=== PATIENT | male | born 1940 | race Caucasian/White ===

== ENCOUNTER 2017-05-02 22:09 | Inpatient (IN) ==
[2017-05-02 23:58] LABS: Basophils % 0.3 %; Eosinophils % 0.1 %; Hematocrit 41.7 % (37.5-50.1); Hemoglobin 14.3 g/dL (12.9-16.9); Immature Granulocytes % 1.4 % (0-4); Immature Platelets 7.7 % (1.1-6.1); Lymphocytes # 1.1 K/mcL (0.6-4.6); Lymphocytes % 8.2 %; Mean Corpuscular HGB Conc 34.3 g/dL (31.6-35.5); Mean Corpuscular Hemoglobin 32.9 pg (28.0-33.3); Mean Corpuscular Volume 95.9 fL (83.0-100.0); Mean Platelet Volume 11.1 fL (9.4-12.4); Monocytes # 1.4 K/mcL (0.0-1.3); Monocytes % 10.3 %; Neutrophils # 10.9 K/mcL (1.6-8.9); Platelet Count 291 K/mcL (140-400); Red Blood Count 4.35 M/mcL (4.19-5.50); Red Cell Distribution Width 17.6 % (11.5-14.5); Segmented Neutrophils % 79.7 %
[2017-05-03 00:13] LABS: Alanine Aminotransferase 229 Units/L (0-55); Albumin 2.8 g/dL (3.5-5.0); Albumin/Globulin Ratio 0.7 (1.1-2.2); Alkaline Phosphatase 573 Units/L (38-126); Amylase 66 Units/L (25-125); Aspartate Amino Transferase 278 Units/L (5-34); BUN/Creatinine Ratio 26 (6-26); Bilirubin,Direct 7.3 mg/dL (0.0-0.5); Bilirubin,Indirect 1.8 mg/dL (0.0-1.2); Bilirubin,Total 9.1 mg/dL (0.2-1.2); Blood Urea Nitrogen 36 mg/dL (8-26); Calcium 9.7 mg/dL (8.6-10.8); Carbon Dioxide 24 mEq/L (19-29); Chloride 100 mEq/L (98-109); Globulin 4.1 g/dL (2.4-3.5); Glucose 95 mg/dL (70-99); Lipase 95 Units/L (8-78); Osmolality,Calculated 290 (280-300); Potassium 4.6 mEq/L (3.5-4.5); Sodium 136 mEq/L (136-145); Total Protein 6.9 g/dL (6.0-8.3); eGFR For African Americans 59 (> 60); eGFR For Non-African Americans 49 (> 60)
[2017-05-03] MEDS ORDERED: 0.9 % Sodium Chloride 1,000 ML IVC ONE (00:32)
--- NOTE | 2017-05-03 00:44 | Emergency Department Note ---
Disposition Clinical Impression: Lung mass, Adrenal mass, Acute renal insufficiency Acute liver failure Qualifiers: Hepatic coma status: without hepatic coma Qualified Code(s): K72.00 - Acute and subacute hepatic failure without coma COPD (chronic obstructive pulmonary disease) Qualifiers: COPD type: unspecified COPD Qualified Code(s): J44.9 - Chronic obstructive pulmonary disease, unspecified UTI (urinary tract infection) Qualifiers: Urinary tract infection type: acute cystitis Hematuria presence: without hematuria Qualified Code(s): N30.00 - Acute cystitis without hematuria Disposition: Admitted As Inpatient Condition: Undetermined Abdominal Pain HPI - General Chief Complaint: ED Abdominal Pain Stated Complaint: ABD PAIN Time Seen by Provider: 05/03/17 00:01 Source: patient, family Mode of arrival: private vehicle Limitations: no limitations Nursing Notes Reviewed: Yes Vital Signs Reviewed: Yes - History of Present Illness Pt Subjective Complaint: abdominal pain Onset (ago): month(s) (since second week of March) Consistency: constant, Worsening Location: diffuse, RUQ Pain Severity: mild, moderate Pain Scale: 6 Quality: fullness, dull Radiation: none Migration to: no migration Improves with: nothing Worsens with: other (lying down) Associated symptoms: Reports: nausea, anorexia. Denies: vomiting, diarrhea, fever, chills, constipation, dysuria, hematemesis, hematochezia, melena, hematuria, syncope Treatments prior to arrival: none - Related Data Allergies Allergy/AdvReac Type Severity Reaction Status Date / Time No Known Allergies Allergy Verified 05/02/17 22:52 All systems ED: reviewed and negative except as stated. Constitutional: Reports: weight change (27lbs in 3 weeks). Denies: fever, chills, weakness, night sweats Eyes: Denies: eye pain, eye discharge, vision change ENT ED: Denies: throat pain, congestion, dysphagia Cardiovascular: Reports: dyspnea on exertion, orthopnea, edema. Denies: chest pain, palpitations, syncope Respiratory: Reports: dyspnea, wheezes. Denies: cough, hemoptysis, stridor, sputum production Gastrointestinal: Reports: as per HPI, abdominal pain, nausea. Denies: vomiting , diarrhea, constipation, melena, hematochezia Genitourinary: Denies: urgency, dysuria, frequency, hematuria Musculoskeletal: Denies: back pain, neck pain, joint swelling, arthralgia Integumentary: Denies: rash, pruritus Neurological: Denies: headache, weakness, confusion, abnormal gait, vertigo Hematological/Lymphatic: Denies: easy bleeding, easy bruising, lymphadenopathy Abdominal Pain PMH - Past Medical History Medical history: Reports: hyperlipidemia, hypertension, myocardial infarction, thyroid disease, other Male Surgical History: Reports: no surgical history Psychiatric history: Reports: ADHD, depression - Social History Smoking status: Current some day smoker Alcohol use: Reports: none, rarely Drug use: Reports: none Physical Exam - General Limitations: no limitations General appearance: alert, in no apparent distress - Head Head exam: atraumatic, normocephalic, normal inspection - Eye Eye exam: Present: PERRL, scleral icterus. Absent: conjunctival injection, periorbital swelling - ENT ENT exam: mucous membranes moist - Neck Neck exam: Present: normal inspection, full ROM, trachea midline. Absent: meningismus - Expanded Neck Exam Neck exam focused ED: Absent: JVD - Chest Chest inspection: Present: normal inspection, symmetric chest wall rise - Respiratory Respiratory exam: Present: wheezes. Absent: respiratory distress, stridor, accessory muscle use, prolonged expiratory phase - Cardiovascular Cardiovascular exam: Present: regular rate, normal rhythm - Abdominal Exam Abdominal exam: Present: soft, tenderness, distention, diminished bowel sounds, ascites. Absent: guarding, rebound, rigidity, Thompson's sign, mass, pulsatile mass Abdominal tenderness: Present: diffuse - Extremities Exam Extremities exam: Present: full ROM, normal capillary refill, pedal edema. Absent: tenderness, joint swelling, calf tenderness - Expanded Lower Extremity Exam Gait: observed and normal - Back Exam Back exam: Present: normal inspection - Neurological Exam Neurological exam: Present: alert, oriented X3, CN II-XII intact, normal gait - Psychiatric Psychiatric exam: Present: normal affect, normal mood - Skin Skin exam: Present: warm, dry, intact, normal color Course Vital Signs Temperature 97.5 F L 05/02/17 22:51 Pulse Rate 95 05/02/17 22:51 Respiratory Rate 18 05/02/17 22:51 Blood Pressure 150/75 05/02/17 22:51 O2 Sat by Pulse Oximetry 92 05/02/17 22:51 Temperature 98.5 F 05/03/17 03:28 Pulse Rate 95 05/03/17 03:28 Respiratory Rate 18 05/03/17 04:28 Blood Pressure 133/91 05/03/17 03:28 O2 Sat by Pulse Oximetry 95 05/03/17 04:28 Oxygen Delivery Oxygen Delivery Nasal Cannula Abdominal Pain - Medical Records Medical records reviewed: Yes I reviewed the patient's medical records. - Lab Data Lab results reviewed: Yes I reviewed the patient's lab results. Lab results narrative: Laboratory Last Values WBC 13.6 K/mcL (4.3-11.1) H 05/02/17 23:47 RBC 4.35 M/mcL (4.19-5.50) 05/02/17 23:47 Hgb 14.3 g/dL (12.9-16.9) 05/02/17 23:47 Hct 41.7 % (37.5-50.1) 05/02/17 23:47 MCV 95.9 fL (83.0-100.0) 05/02/17 23:47 MCH 32.9 pg (28.0-33.3) 05/02/17 23:47 MCHC 34.3 g/dL (31.6-35.5) 05/02/17 23:47 RDW 17.6 % (11.5-14.5) H 05/02/17 23:47 Plt Count 291 K/mcL (140-400) 05/02/17 23:47 MPV 11.1 fL (9.4-12.4) 05/02/17 23:47 Immature Gran % 1.4 % (0-4) 05/02/17 23:47 Seg Neutrophils % 79.7 % 05/02/17 23:47 Lymphocytes % 8.2 % 05/02/17 23:47 Monocytes % 10.3 % 05/02/17 23:47 Eosinophils % 0.1 % 05/02/17 23:47 Basophils % 0.3 % 05/02/17 23:47 Neutrophils # 10.9 K/mcL (1.6-8.9) H 05/02/17 23:47 Lymphocytes # 1.1 K/mcL (0.6-4.6) 05/02/17 23:47 Monocytes # 1.4 K/mcL (0.0-1.3) H 05/02/17 23:47 Eosinophils # 0.0 K/mcL (0.0-0.6) 05/02/17 23:47 Basophils # 0.0 K/mcL (0.0-0.2) 05/02/17 23:47 Immature Plt Fraction 7.7 % (1.1-6.1) H 05/02/17 23:47 PT 12.8 Seconds (9.4-12.1) H 05/02/17 23:47 INR 1.2 05/02/17 23:47 APTT 27.5 Seconds (26.0-36.0) 05/02/17 23:47 Sodium 136 mEq/L (136-145) 05/02/17 23:47 Potassium 4.6 mEq/L (3.5-4.5) H 05/02/17 23:47 Chloride 100 mEq/L (98-109) 05/02/17 23:47 Carbon Dioxide 24 mEq/L (19-29) 05/02/17 23:47 BUN 36 mg/dL (8-26) H 05/02/17 23:47 Creatinine 1.41 mg/dL (0.72-1.25) H 05/02/17 23:47 Est GFR ( Amer) 59 (> 60) L 05/02/17 23:47 Est GFR (Non-Af Amer) 49 (> 60) L 05/02/17 23:47 BUN/Creatinine Ratio 26 (6-26) 05/02/17 23:47 Glucose 95 mg/dL (70-99) 05/02/17 23:47 Calculated Osmolality 290 (280-300) 05/02/17 23:47 Lactic Acid 1.8 mmol/L (0.5-2.2) 05/03/17 00:36 Calcium 9.7 mg/dL (8.6-10.8) 05/02/17 23:47 Total Bilirubin 9.1 mg/dL (0.2-1.2) H 05/02/17 23:47 Direct Bilirubin 7.3 mg/dL (0.0-0.5) H 05/02/17 23:47 Indirect Bilirubin 1.8 mg/dL (0.0-1.2) H 05/02/17 23:47 AST 278 Units/L (5-34) H 05/02/17 23:47 ALT 229 Units/L (0-55) H 05/02/17 23:47 Alkaline Phosphatase 573 Units/L (38-126) H 05/02/17 23:47 B-Natriuretic Peptide 21 pg/mL (0-100) 05/02/17 23:47 Serum Total Protein 6.9 g/dL (6.0-8.3) 05/02/17 23:47 Albumin 2.8 g/dL (3.5-5.0) L 05/02/17 23:47 Globulin 4.1 g/dL (2.4-3.5) H 05/02/17 23:47 Albumin/Globulin Ratio 0.7 (1.1-2.2) L 05/02/17 23:47 Amylase 66 Units/L (25-125) 05/02/17 23:47 Lipase 95 Units/L (8-78) H 05/02/17 23:47 Urine Color [place] (Yellow) A 05/03/17 01:28 Urine Clarity Cloudy (Clear) A 05/03/17 01:28 Urine pH 5.5 pH Units (5.0-8.0) 05/03/17 01:28 Ur Specific [place] 1.026 (1.010-1.025) H 05/03/17 01:28 Urine Protein 30 mg/dL (Neg-Trace) H 05/03/17 01:28 Urine Glucose (UA) Normal mg/dL (Normal) 05/03/17 01:28 Urine Ketones Trace mg/dL (Negative) H 05/03/17 01:28 Urine Blood Negative (Negative) 05/03/17 01:28 Urine Nitrite Positive (Negative) A 05/03/17 01:28 Urine Bilirubin Large (Negative) H 05/03/17 01:28 Urine Urobilinogen 2.0 mg/dL (Normal) H 05/03/17 01:28 Ur Leukocyte Esterase Small (Negative) H 05/03/17 01:28 Urine Microscopic RBC 0-3 per hpf (0-3) 05/03/17 01:28 Urine Microscopic WBC 0-3 per hpf (0-3) 05/03/17 01:28 Ur Squamous Epith Cells Moderate per lpf (None-Few) H 05/03/17 01:28 Urine Bacteria None Seen per hpf (None-Few) 05/03/17 01:28 Hyaline Casts Few per lpf (None-Few) 05/03/17 01:28 Ur Culture Indicated? YES (NO) A 05/03/17 01:28 Ethyl Alcohol < 10 mg/dL (0-10) 05/02/17 23:47 Hep Bs Antigen Nonreactive (Nonreactive) 05/02/17 23:47 Result diagrams: 05/03/17 04:18 05/03/17 04:18 Lab Results 05/02/17 05/02/17 05/02/17 Range/Units 23:47 23:47 23:47 WBC 13.6 H (4.3-11.1) K/mcL RBC 4.35 (4.19-5.50) M/mcL Hgb 14.3 (12.9-16.9) g/dL Hct 41.7 (37.5-50.1) % MCV 95.9 (83.0-100.0) fL MCH 32.9 (28.0-33.3) pg MCHC 34.3 (31.6-35.5) g/dL RDW 17.6 H (11.5-14.5) % Plt Count 291 (140-400) K/mcL MPV 11.1 (9.4-12.4) fL Immature Gran % 1.4 (0-4) % Seg Neutrophils % 79.7 % Lymphocytes % 8.2 % Monocytes % 10.3 % Eosinophils % 0.1 % Basophils % 0.3 % Neutrophils # 10.9 H (1.6-8.9) K/mcL Lymphocytes # 1.1 (0.6-4.6) K/mcL Monocytes # 1.4 H (0.0-1.3) K/mcL Eosinophils # 0.0 (0.0-0.6) K/mcL Basophils # 0.0 (0.0-0.2) K/mcL Immature Plt Fraction 7.7 H (1.1-6.1) % PT 12.8 H (9.4-12.1) Seconds INR 1.2 APTT 27.5 (26.0-36.0) Seconds Sodium 136 (136-145) mEq/L Potassium 4.6 H (3.5-4.5) mEq/L Chloride 100 (98-109) mEq/L Carbon Dioxide 24 (19-29) mEq/L BUN 36 H (8-26) mg/dL Creatinine 1.41 H (0.72-1.25) mg/dL Est GFR ( Amer) 59 L (> 60) Est GFR (Non-Af Amer) 49 L (> 60) BUN/Creatinine Ratio 26 (6-26) Glucose 95 (70-99) mg/dL Calculated Osmolality 290 (280-300) Lactic Acid (0.5-2.2) mmol/L Calcium 9.7 (8.6-10.8) mg/dL Total Bilirubin 9.1 H (0.2-1.2) mg/dL Direct Bilirubin 7.3 H (0.0-0.5) mg/dL Indirect Bilirubin 1.8 H (0.0-1.2) mg/dL AST 278 H (5-34) Units/L ALT 229 H (0-55) Units/L Alkaline Phosphatase 573 H (38-126) Units/L B-Natriuretic Peptide (0-100) pg/mL Serum Total Protein 6.9 (6.0-8.3) g/dL Albumin 2.8 L (3.5-5.0) g/dL Globulin 4.1 H (2.4-3.5) g/dL Albumin/Globulin Ratio 0.7 L (1.1-2.2) Amylase 66 (25-125) Units/L Lipase 95 H (8-78) Units/L Urine Color (Yellow) Urine Clarity (Clear) Urine pH (5.0-8.0) pH Units Ur Specific [place] (1.010-1.025) Urine Protein (Neg-Trace) mg/dL Urine Glucose (UA) (Normal) mg/dL Urine Ketones (Negative) mg/dL Urine Blood (Negative) Urine Nitrite (Negative) Urine Bilirubin (Negative) Urine Urobilinogen (Normal) mg/dL Ur Leukocyte Esterase (Negative) Urine Microscopic RBC (0-3) per hpf Urine Microscopic WBC (0-3) per hpf Ur Squamous Epith Cells (None-Few) per lpf Urine Bacteria (None-Few) per hpf Hyaline Casts (None-Few) per lpf Ur Culture Indicated? (NO) Ethyl Alcohol < 10 (0-10) mg/dL Hep Bs Antigen (Nonreactive) 05/02/17 05/02/17 05/03/17 Range/Units 23:47 23:47 00:36 WBC (4.3-11.1) K/mcL RBC (4.19-5.50) M/mcL Hgb (12.9-16.9) g/dL Hct (37.5-50.1) % MCV (83.0-100.0) fL MCH (28.0-33.3) pg MCHC (31.6-35.5) g/dL RDW (11.5-14.5) % Plt Count (140-400) K/mcL MPV (9.4-12.4) fL Immature Gran % (0-4) % Seg Neutrophils % % Lymphocytes % % Monocytes % % Eosinophils % % Basophils % % Neutrophils # (1.6-8.9) K/mcL Lymphocytes # (0.6-4.6) K/mcL Monocytes # (0.0-1.3) K/mcL Eosinophils # (0.0-0.6) K/mcL Basophils # (0.0-0.2) K/mcL Immature Plt Fraction (1.1-6.1) % PT (9.4-12.1) Seconds INR APTT (26.0-36.0) Seconds Sodium (136-145) mEq/L Potassium (3.5-4.5) mEq/L Chloride (98-109) mEq/L Carbon Dioxide (19-29) mEq/L BUN (8-26) mg/dL Creatinine (0.72-1.25) mg/dL Est GFR ( Amer) (> 60) Est GFR (Non-Af Amer) (> 60) BUN/Creatinine Ratio (6-26) Glucose (70-99) mg/dL Calculated Osmolality (280-300) Lactic Acid 1.8 (0.5-2.2) mmol/L Calcium (8.6-10.8) mg/dL Total Bilirubin (0.2-1.2) mg/dL Direct Bilirubin (0.0-0.5) mg/dL Indirect Bilirubin (0.0-1.2) mg/dL AST (5-34) Units/L ALT (0-55) Units/L Alkaline Phosphatase (38-126) Units/L B-Natriuretic Peptide 21 (0-100) pg/mL Serum Total Protein (6.0-8.3) g/dL Albumin (3.5-5.0) g/dL Globulin (2.4-3.5) g/dL Albumin/Globulin Ratio (1.1-2.2) Amylase (25-125) Units/L Lipase (8-78) Units/L Urine Color (Yellow) Urine Clarity (Clear) Urine pH (5.0-8.0) pH Units Ur Specific [place] (1.010-1.025) Urine Protein (Neg-Trace) mg/dL Urine Glucose (UA) (Normal) mg/dL Urine Ketones (Negative) mg/dL Urine Blood (Negative) Urine Nitrite (Negative) Urine Bilirubin (Negative) Urine Urobilinogen (Normal) mg/dL Ur Leukocyte Esterase (Negative) Urine Microscopic RBC (0-3) per hpf Urine Microscopic WBC (0-3) per hpf Ur Squamous Epith Cells (None-Few) per lpf Urine Bacteria (None-Few) per hpf Hyaline Casts (None-Few) per lpf Ur Culture Indicated? (NO) Ethyl Alcohol (0-10) mg/dL Hep Bs Antigen Nonreactive (Nonreactive) 05/03/17 Range/Units 01:28 WBC (4.3-11.1) K/mcL RBC (4.19-5.50) M/mcL Hgb (12.9-16.9) g/dL Hct (37.5-50.1) % MCV (83.0-100.0) fL MCH (28.0-33.3) pg MCHC (31.6-35.5) g/dL RDW (11.5-14.5) % Plt Count (140-400) K/mcL MPV (9.4-12.4) fL Immature Gran % (0-4) % Seg Neutrophils % % Lymphocytes % % Monocytes % % Eosinophils % % Basophils % % Neutrophils # (1.6-8.9) K/mcL Lymphocytes # (0.6-4.6) K/mcL Monocytes # (0.0-1.3) K/mcL Eosinophils # (0.0-0.6) K/mcL Basophils # (0.0-0.2) K/mcL Immature Plt Fraction (1.1-6.1) % PT (9.4-12.1) Seconds INR APTT (26.0-36.0) Seconds Sodium (136-145) mEq/L Potassium (3.5-4.5) mEq/L Chloride (98-109) mEq/L Carbon Dioxide (19-29) mEq/L BUN (8-26) mg/dL Creatinine (0.72-1.25) mg/dL Est GFR ( Amer) (> 60) Est GFR (Non-Af Amer) (> 60) BUN/Creatinine Ratio (6-26) Glucose (70-99) mg/dL Calculated Osmolality (280-300) Lactic Acid (0.5-2.2) mmol/L Calcium (8.6-10.8) mg/dL Total Bilirubin (0.2-1.2) mg/dL Direct Bilirubin (0.0-0.5) mg/dL Indirect Bilirubin (0.0-1.2) mg/dL AST (5-34) Units/L ALT (0-55) Units/L Alkaline Phosphatase (38-126) Units/L B-Natriuretic Peptide (0-100) pg/mL Serum Total Protein (6.0-8.3) g/dL Albumin (3.5-5.0) g/dL Globulin (2.4-3.5) g/dL Albumin/Globulin Ratio (1.1-2.2) Amylase (25-125) Units/L Lipase (8-78) Units/L Urine Color [place] A (Yellow) Urine Clarity Cloudy A (Clear) Urine pH 5.5 (5.0-8.0) pH Units Ur Specific [place] 1.026 H (1.010-1.025) Urine Protein 30 H (Neg-Trace) mg/dL Urine Glucose (UA) Normal (Normal) mg/dL Urine Ketones Trace H (Negative) mg/dL Urine Blood Negative (Negative) Urine Nitrite Positive A (Negative) Urine Bilirubin Large H (Negative) Urine Urobilinogen 2.0 H (Normal) mg/dL Ur Leukocyte Esterase Small H (Negative) Urine Microscopic RBC 0-3 (0-3) per hpf Urine Microscopic WBC 0-3 (0-3) per hpf Ur Squamous Epith Cells Moderate H (None-Few) per lpf Urine Bacteria None Seen (None-Few) per hpf Hyaline Casts Few (None-Few) per lpf Ur Culture Indicated? YES A (NO) Ethyl Alcohol (0-10) mg/dL Hep Bs Antigen (Nonreactive) - Radiology Data Radiology results reviewed: Yes I reviewed the patient's radiology results. Abdomen/Pelvis CT 05/03/17 00:30 IMPRESSION: Given the presence of a right lung mass the findings are most consistent with metastatic disease involving the liver and right adrenal gland. Upper abdominal lymph nodes are also probably metastatic. D/ / Ayush Castro MD / Ayush Castro MD Interpreting Provider: Ayush Castro MD Chest X-Ray 05/03/17 00:31 IMPRESSION: There is either a right hilar mass or right upper lobe mass abutting the right hilum. Contrast-enhanced routine chest CT is recommended for further evaluation. D/ / Ayush Castro MD / Ayush Castro MD Interpreting Provider: Ayush Castro MD - EKG Data EKG attestation: Yes I reviewed and interpreted this EKG. EKG shows normal: sinus rhythm Rate: normal Rhythm: NSR [place]/QRS: IVCD When compared to previous EKG there are: previous EKG unavailable Interpretation: nonspecific ST-T wave changes Attestation Statement - Attestation Attestation: I, Freddy Franz MD, personally evaluated this patient and discussed their management with the midlevel provicer, PAC/PRIMARY CARE PHYSICIAN. I reviewed the midlevel provider 's note and agree with the documented findings, medical decision making, and plan of care. 76-year-old male presents to the emergency department with a complaint of upper abdominal pain which started about a month ago. Some intermittent nausea and vomiting. No fever. Some shortness of breath. Symptoms have gotten progressively worse and he has lost about 27 pounds. He is a smoker. He also now has developed jaundice. On examination patient is a well-developed well-nourished elderly male in no acute distress. He is alert and oriented 3. There is no cyanosis or diaphoresis. Breath sounds are equal bilaterally with a few scattered expiratory wheezes. Heart regular rate and rhythm. Abdomen is soft with normal bowel sounds. There is mild diffuse upper abdominal tenderness, worse on the right. Labs reviewed. Chest x-ray shows a right lung mass. CT of the abdomen and pelvis shows extensive metastatic involvement of the liver and right adrenal gland as well as upper abdominal lymph nodes. Results discussed with patient and family. The hospitalist, Dr. Powers, was consulted and accepted admission of the patient.
[2017-05-03 00:45] LABS: INR 1.2; Prothrombin Time 12.8 Seconds (9.4-12.1)
[2017-05-03 00:47] LABS: Activated Partial Thrombo Time 27.5 Seconds (26.0-36.0)
[2017-05-03 01:12] LABS: Ethanol < 10 mg/dL (0-10)
[2017-05-03 01:32] LABS: Hepatitis B Surface Antigen Nonreactive (Nonreactive)
[2017-05-03 01:36] LABS: Bilirubin,Urine Large (Negative); Blood,Urine Negative (Negative); Clarity,Urine Cloudy (Clear); Color,Urine Orange (Yellow); Glucose,Urine (UA) Normal (Normal); Ketones,Urine Trace mg/dL (Negative); Leukocyte Esterase,Urine Small (Negative); Nitrite,Urine Positive (Negative); PH,Urine 5.5 pH Units (5.0-8.0); Protein,Urine 30 mg/dL (Neg-Trace); Specific Gravity,Urine 1.026 (1.010-1.025)
[2017-05-03 01:38] LABS: Bacteria,Urine None Seen per hpf (None-Few); Hyaline Casts,Urine Few per lpf (None-Few); Squamous Epithelial Cell,Urine Moderate per lpf (None-Few); WBC,Urine 0-3 per hpf (0-3)
[2017-05-03] MEDS ORDERED: Ipratropium/Albuterol Neb 3 ML IH ONE ×2 (01:47→01:52)
[2017-05-03 01:49] LABS: RBC,Urine 0-3 per hpf (0-3)
[2017-05-03] MEDS ORDERED: Ondansetron 4 MG/2 ML VIAL IVP PRN (03:27)
[2017-05-03] MEDS ORDERED: Naloxone 0.4 MG/ML INJ IVP PRN (03:27)
[2017-05-03] MEDS ORDERED: *HR* Morphine 2 MG/ML SYRINGE IVP PRN (03:27)
[2017-05-03] MEDS ORDERED: *HR* Dextrose 50 % in Water (Syg) 50 ML SYRINGE IVP PRN (03:34)
[2017-05-03] MEDS ORDERED: Dextrose Gel 15 GM PO PRN ×2 (03:34)
[2017-05-03] MEDS ORDERED: D5% in Water 1,000 ML IVC PRN (03:34)
[2017-05-03] MEDS ORDERED: Ipratropium/Albuterol Neb 3 ML IH SCH (04:00)
--- NOTE | 2017-05-03 04:13 | Internal Med History&Physical ---
Date of Encounter: 05/03/17 Time of Encounter: 03:55 Assessment and Plan (1) Hyperbilirubinemia Current visit: Yes Status: Acute Acute elevation of total bilirubin with transaminitis - elevated ALP and AST and ALP - with mild KOFI Likely due to metastatic liver disease INR 1.2, PT 12.8 Empiric IV antibiotics, IV fluids Gastroenterology consult Avoid hepatotoxic drugs Chest x-ray revealed right upper lobe mass Repeat labs in a.m. (2) Lung mass Current visit: Yes Status: Acute Right lung mass - newly diagnosed, with metastases to liver, right adrenal gland and abdominal lymphadenopathy Oncology consult CT chest for further evaluation (3) Sepsis Current visit: Yes Status: Acute Sepsis present on admission, likely secondary to UTI and probable bronchitis - with hyperbilirubinemia and transaminitis and mild AK I IV fluids, IV antibioticS Cultures pending EKG sinus rhythm with no acute ST-T changes Qualifiers: Sepsis type: sepsis due to unspecified organism Qualified Code(s): A41.9 - Sepsis, unspecified organism (4) Acute renal insufficiency Current visit: Yes Status: Acute Likely due to sepsis and acute illness Continue IV fluids Repeat labs in a.m. (5) COPD exacerbation Current visit: Yes Status: Acute Acute exacerbation of COPD -with probable acute bronchitis Continue DuoNeb breathing treatment O2 via nasal cannula (6) DVT prophylaxis Current visit: Yes Status: Acute Continue SCDs Internal Medicine - H&P: HPI Chief complaint: Abdominal pain Admitted From: Emergency Dept History of present illness: Mr. Cheatham is a 76 year old male with PMH of COPD, hypertension, hypothyroidism, hyperlipidemia and depression. He presents to the ED with complaints of abdominal pain and distention. Patient states symptoms have been going on for almost 2 months. He decided to come to ED today because his family made him come in. Patient states his abdominal pain is diffuse and is almost constant. Symptoms have gradually worsened. He complains of fullness and distention. No alleviating factors. Pain is worse when he lays flat. Patient also reports bilateral lower leg edema, nausea and poor appetite. Patient denies chest pain and denies palpitations but denies headache or dizziness. Denies vomiting or diarrhea. He does complain of mild shortness of breath which is chronic due to COPD. On examination patient is awake and alert. He is in mild discomfort due to wheezing and abdominal pain. He is hard of hearing, but He is able to provide all history. No family members at bedside. Patient also reports weight loss of almost 30 pounds over the past 3- 4 weeks. Also complains of generalized weakness. No other associated symptoms. Initial ED evaluation revealed hyperbilirubinemia with a total bilirubin of 9.14 transaminitis, elevated WBC and UA positive for nitrite. CT scan of the abdomen revealed metastatic disease involving the right adrenal gland and the liver and upper abdominal lymph nodes also probably metastatic. Chest x-ray revealed right hilar mass or right upper lobe mass, will need CT chest. Patient is being admitted for transaminitis and hyperbilirubinemia and COPD exacerbation. Patient has been explained about his cardiac condition, guarded prognosis and plan of care. He understood and agreed. No unanswered questions. code status full code. Past Med Surg Social Fam HX - Past Medical History Medical history: hyperlipidemia, hypertension, myocardial infarction, thyroid disease, other Psychiatric history: ADHD, depression - Past Surgical History Surgical History: cataract - Social History Smoking Status: Current some day smoker Smokeless Tobacco Status: No Alcohol use: none, rarely Drug use: none Internal Medicine - H&P: Meds Allergies No Known Allergies Allergy (Verified 05/02/17 22:52) All Systems PM: A 10-system review of systems was performed and is negative for pertinent findings except as documented above in the HPI. - Constitutional Constitutional: fatigue, weakness, no fever(s) - EENT Eyes: no blurry vision, no loss of vision - Cardiovascular Cardiovascular ROS IM: dyspnea, dyspnea on exertion, no chest pain, no lightheadedness, no palpitations, no syncope - Respiratory Respiratory: cough, dyspnea, dyspnea on exertion, wheezing, chest congestion - Gastrointestinal Gastrointestinal: abdominal pain, bloating, constipation, cramping, no diarrhea , no hematemesis, no hematochezia, no nausea, no vomiting - Genitourinary Genitourinary ROS male: no dysuria - Musculoskeletal Musculoskeletal ROS IM: arthralgias, back pain - Neurological Neurological ROS: no abnormal gait, no abnormal speech, no dizziness, no focal weakness, no loss of vision, no numbness, no tingling - Constitutional Vitals: Temp Pulse Resp BP Pulse Ox 98.5 F 95 18 133/91 90 05/03/17 03:28 05/03/17 03:28 05/03/17 03:28 05/03/17 03:28 05/03/17 03:28 General appearance: Present: mild distress, A&O X 3, pleasant, answers questions appropriately Exam: Generalized weakness, ill-appearing - Head Head exam: Present: atraumatic - Eye Eye exam: Present: EOMI, scleral icterus (Bilateral) - ENT ENT exam: Present: mucous membranes moist - Neck Neck exam general surgery: Present: supple - Respiratory Respiratory exam: Present: decreased breath sounds, wheezes (Extensive bilateral ). Absent: accessory muscle use, rales, rhonchi, tachypnea - Cardiovascular Cardiovascular exam: Present: RRR, +S1, +S2, systolic murmur - GI/Abdominal GI/Abdominal exam: Present: distended (Likely distended with ascites), soft, tenderness (Mild generalized). Absent: firm, guarding - Extremities Exam Extremities exam: Present: pedal edema (Bilateral leg pitting 2+), radial pulses palpable and symetrical. Absent: cyanotic - Neurological Exam Neurological exam: Present: alert, oriented X3, no focal deficits Internal Med - H&P Results - Labs CBC & Chem 7: 05/02/17 23:47 05/02/17 23:47
[2017-05-03] MEDS: Ipratropium/Albuterol Neb 3 ML IH SCH ×6 (04:28→23:17)
[2017-05-03 04:31] LABS: Basophils % 0.3 %; Eosinophils % 0.2 %; Hematocrit 40.4 % (37.5-50.1); Hemoglobin 13.9 g/dL (12.9-16.9); Immature Granulocytes % 2.3 % (0-4); Lymphocytes % 7.9 %; Mean Corpuscular HGB Conc 34.4 g/dL (31.6-35.5); Mean Corpuscular Hemoglobin 32.9 pg (28.0-33.3); Mean Corpuscular Volume 95.7 fL (83.0-100.0); Mean Platelet Volume 11.2 fL (9.4-12.4); Monocytes # 1.3 K/mcL (0.0-1.3); Monocytes % 10.7 %; Neutrophils # 9.7 K/mcL (1.6-8.9); Platelet Count 279 K/mcL (140-400); Red Blood Count 4.22 M/mcL (4.19-5.50); Red Cell Distribution Width 17.7 % (11.5-14.5); Segmented Neutrophils % 78.6 %
[2017-05-03 04:36] LABS: INR 1.2; Prothrombin Time 13.1 Seconds (9.4-12.1)
[2017-05-03 04:41] LABS: Alanine Aminotransferase 202 Units/L (0-55); Albumin 2.6 g/dL (3.5-5.0); Albumin/Globulin Ratio 0.7 (1.1-2.2); Alkaline Phosphatase 524 Units/L (38-126); Aspartate Amino Transferase 253 Units/L (5-34); BUN/Creatinine Ratio 28 (6-26); Bilirubin,Total 8.2 mg/dL (0.2-1.2); Blood Urea Nitrogen 36 mg/dL (8-26); Calcium 9.1 mg/dL (8.6-10.8); Carbon Dioxide 21 mEq/L (19-29); Chloride 105 mEq/L (98-109); Globulin 3.6 g/dL (2.4-3.5); Glucose 88 mg/dL (70-99); Osmolality,Calculated 292 (280-300); Potassium 4.6 mEq/L (3.5-4.5); Sodium 137 mEq/L (136-145); Total Protein 6.2 g/dL (6.0-8.3); eGFR For African Americans > 60 (> 60); eGFR For Non-African Americans 55 (> 60)
[2017-05-03] MEDS: 0.9 % Sodium Chloride 1,000 ML IVC SCH ×2 (05:03→23:07)
[2017-05-03] MEDS ORDERED: *HR* Heparin 5,000 UNIT/ML VIAL SQ SCH (06:00)
[2017-05-03] MEDS ORDERED: Famotidine 20 MG/2 ML VIAL IVP SCH (06:00)
[2017-05-03] MEDS: Insulin LISPRO 300 UNITS/3 ML VIAL SQ SCH ×3 (08:26→16:52)
[2017-05-03] MEDS: Piperacillin/Tazobactam 3.375 GM in D5% in Water (Mini-Bag+) 100 ML IVPB SCH ×3 (08:39→23:08)
[2017-05-03 13:03] LABS: Hepatitis A Antibody IgM Nonreactive (Nonreactive); Hepatitis B Core IgM Nonreactive (Nonreactive); Hepatitis C Virus Antibody Nonreactive (Nonreactive)
--- NOTE | 2017-05-03 15:11 | Electrocardiograph Report ---
[place] [id number] Test Date: 2017-05-03 Pat Name: Axel Cheatham Department: 105 Room: 3B24 Gender: M Door Operator: [facility] : 1940 Requested By: Vinicio Hopper Order Number: [id number] Reading MD: Young Dean MD Measurements Intervals [place] Rate: 90 P: 68 MD: 160 QRS: -39 QRSD: 134 T: 97 QT: 391 QTc: 438 Interpretive Statements SINUS RHYTHM MARKED LEFT AXIS DEVIATION INTRAVENTRICULAR CONDUCTION DELAY, atypical lbbb Poor R wave progression Electronically Signed On 05-03-2017 15:09:39 EDT by Young Dean MD
--- NOTE | 2017-05-03 15:29 | Oncology Inp Consult Note ---
Date of Encounter: 05/03/17 Time of Encounter: 15:00 Assessment and Plan (1) Lung mass Status: Acute Assessment and plan: I met with Mr. Cheatham, his and his daughter today. I reviewed his imaging and recent history. This gentleman appears to have metastatic lung cancer. I explained to them that there are 2 general histologies (non-small cell lung cancer and small cell lung cancer). Given his presentation and degree of hepatic dysfunction, treatment will be very difficult. If he has underlying non-small cell lung cancer, hospice will be most appropriate. However, if he has small cell lung cancer, I do think we can start with dose attenuated carboplatin with etoposide and possibly offer a chance of liver recovery. The patient does want to at least try treatment if feasible and therefore I ordered a CT-guided biopsy of the liver. He has been made nothing by mouth after midnight. I usually obtain [facility] imaging to complete staging, but given the degree of liver dysfunction and his lack of neurologic symptoms, we will hold on this for the time being. We will continue to follow along. If he does have small cell lung cancer, I would recommend treatment inpatient and this was discussed with the family today and they agree. I will consult palliative care to assist with the care of this patient as well. (2) Acute liver failure Status: Acute Qualifiers: Hepatic coma status: without hepatic coma Qualified Code(s): K72.00 - Acute and subacute hepatic failure without coma - Data of Consult Requesting Physician: Margarita Castro MD Primary Care Provider: Oliver Aragon MD - Consult Narrative Reason for consult: Probable metastatic lung cancer History of present illness: Mr. Cheatham is a 76 year old male who presented emergency Department with progressive abdominal pain. Per his , elevated been going on for at least one to 2 months ago he states it has been only there for one week. The pain is located diffusely through his upper abdomen right greater than left. His appetite has been affected and he is a poor oral intake resulting in nearly a 50 pound weight loss over the past 3 months. The abdominal pain is described as a fullness/bloated sensation. No sharp stabbing pain. Pain does not radiate. His urine has start darken although has noted much change in stool color. In the emergency department, patient's bilirubin was elevated 9.14 and he had a liver transaminitis. CT scan of the abdomen and pelvis revealed extensive liver metastases as well as metastatic deposit in the right adrenal gland. There was also enlargement of his periportal and upper abdominal lymphadenopathy concerning for metastases metastatic involvement of these basins as well. CT imaging imaging of the chest revealed a right upper lobe lung mass centrally. In speaking with the patient and family today, he is feeling better. His bili pain is under good control currently. He is wondering when he can go home. He has been told by the primary team that he has a probable lung cancer with liver involvement. He does desire to be treated although is uncertain of this. Past Med Surg Social Fam HX - Past Medical History Medical history: hyperlipidemia, hypertension, myocardial infarction, thyroid disease, other Psychiatric history: ADHD, depression - Past Surgical History Surgical History: cataract - Social History Smoking Status: Current some day smoker (2 ppd for most of his life until 2-3 months ago) Smokeless Tobacco Status: No Alcohol use: none, rarely Drug use: none - Family History Mother Living Status: Cause of : [place] Hx Family Cardiac Disorders: Yes ([place]) Medications and Allergies Albuterol Sulfate [Ventolin Hfa] 2 puff IH Q4H PRN 05/03/17 [History] Aspirin [Lo-Dose Aspirin EC] 81 mg PO DAILY 05/03/17 [History] Cholecalciferol (D-3) [Vitamin D] 1,000 unit PO DAILY 05/03/17 [History] Ibuprofen [Motrin] 800 mg PO Q8HR PRN 05/03/17 [History] Levothyroxine [Levothyroxine Sodium] 137 mcg PO DAILY@0630 05/03/17 [History] Lisinopril [Zestril] 40 mg PO DAILY 05/03/17 [History] Oxycodone HCl/Acetaminophen [Percocet 5-325 mg Tablet] 1 tab PO TID PRN [History] Sildenafil Citrate [Revatio] 20 - 60 mg PO DAILY PRN 05/03/17 [History] diazePAM [Valium] 2 mg PO DAILY PRN 05/03/17 [History] Allergies No Known Allergies Allergy (Verified 05/02/17 22:52) Constitutional: Present: anorexia, fatigue, lethargy, weight loss Eyes: Present: blurry vision Cardiovascular: Present: as per HPI, dyspnea on exertion Respiratory: Present: dyspnea on exertion Gastrointestinal: Present: as per HPI Musculoskeletal: Present: as per HPI Neurological: Present: as per HPI Oncology - Exam - Constitutional Vitals: Temp Pulse Resp BP Pulse Ox 98.3 F 111 18 143/62 95 05/03/17 15:19 05/03/17 15:19 05/03/17 15:19 05/03/17 15:19 05/03/17 15:19 - Head Head exam: Present: atraumatic, normal inspection, normocephalic - Eye Eye exam: Present: scleral icterus, conjuntiva pink - ENT ENT exam: Present: mucous membranes moist, normal exam, normal oropharynx - Neck Neck exam: Present: full ROM, normal inspection - Respiratory Respiratory exam: Present: decreased breath sounds - Cardiovascular Cardiovascular exam: Present: RRR - GI/Abdominal GI/Abdominal exam: Present: distended, firm, organomegaly, tenderness - Extremities Exam Extremities exam: Present: pedal edema - Skin Skin exam: Present: dry Oncology - Results - Labs Labs: Short CBC 05/03/17 Range/Units 04:18 WBC 12.4 H (4.3-11.1) K/mcL Hgb 13.9 (12.9-16.9) g/dL Hct 40.4 (37.5-50.1) % Plt Count 279 (140-400) K/mcL Neutrophils # 9.7 H (1.6-8.9) K/mcL BMP 05/03/17 04:18 Sodium 137 Potassium 4.6 H Chloride 105 Carbon Dioxide 21 BUN 36 H Creatinine 1.27 H Glucose 88 Calcium 9.1 Liver Function 05/03/17 Range/Units 04:18 Total Bilirubin 8.2 H (0.2-1.2) mg/dL AST 253 H (5-34) Units/L ALT 202 H (0-55) Units/L Alkaline Phosphatase 524 H (38-126) Units/L Albumin 2.6 L (3.5-5.0) g/dL - Imaging and Cardiology CT scan - abdomen Status: image reviewed by me (I personally reviewed CT chest abdomen and pelvis as well as MRI abdomen. This reveals a right centrally located lung mass with hilar adenopathy. In addition, his liver is extensively replaced by metastatic cancer. He has upper abdominal lymphadenopathy identified well as well as a right adrenal metastasis.) Consult Discharge Plan - Plan Referrals: Oliver Aragon MD [Primary Care Provider] - 05/10/17 8:20 am
--- NOTE | 2017-05-03 15:41 | Electrocardiograph Report ---
[address] [address] Test Date: 2017-05-03 Pat Name: Axel Cheatham Department: 101 Room: 3B24 Gender: Well Flow Operator: CHERIE : 1940 Requested By: Freddy Franz Order Number: [id number] Reading MD: Young Dean MD Measurements Intervals [place] Rate: 87 P: 79 MS: 161 QRS: 62 QRSD: 91 T: 62 QT: 346 QTc: 391 Interpretive Statements SINUS RHYTHM Electronically Signed On 05-03-2017 15:40:15 EDT by Young Dean MD
--- NOTE | 2017-05-03 15:47 | Event Note ---
Date of Encounter: 05/03/17 Time of Encounter: 15:41 Patient is 76y/o male admitted for abdominal pain. Patient has newly diagnosed lung ca with metastatic disease. Patient seen and examined with family present at bedside. Oncology evaluation appreciated. Patient to undergo CT guided liver biopsy in am. Palliative care team consultation requested Pt underwent MrCP as per Dr. Tran's request. MRCP negative for any biliary obstruction and consistent with extensive metastatic disease. Started clear liquid diet and advance as tolerated pain management continue empiric abx for UTI and follow up urine culture not in acute exacerbation of COPD respiratory status at baseline continue O2 supplementation and bronchodilator support.
[2017-05-04] MEDS: Ipratropium/Albuterol Neb 3 ML IH SCH ×6 (04:44→23:24)
[2017-05-04] MEDS: 0.9 % Sodium Chloride 1,000 ML IVC SCH (05:25)
[2017-05-04] MEDS: Famotidine 20 MG/2 ML VIAL IVP SCH (05:25)
[2017-05-04 08:35] LABS: BUN/Creatinine Ratio 31 (6-26); Blood Urea Nitrogen 42 mg/dL (8-26); Calcium 8.6 mg/dL (8.6-10.8); Carbon Dioxide 20 mEq/L (19-29); Chloride 106 mEq/L (98-109); Glucose 91 mg/dL (70-99); Osmolality,Calculated 296 (280-300); Phosphorous 4.1 mg/dL (2.3-4.7); Potassium 4.4 mEq/L (3.5-4.5); Uric Acid 6.2 mg/dL (3.5-7.2); eGFR For African Americans > 60 (> 60); eGFR For Non-African Americans 51 (> 60)
[2017-05-04 08:37] LABS: Lactate Dehydrogenase 1608 Units/L (159-327); Sodium 138 mEq/L (136-145)
[2017-05-04] MEDS: Piperacillin/Tazobactam 3.375 GM in D5% in Water (Mini-Bag+) 100 ML IVPB SCH ×2 (08:38→16:30)
[2017-05-04 09:04] LABS: Basophils % 0.1 %; Eosinophils % 0.2 %; Hematocrit 36.8 % (37.5-50.1); Hemoglobin 12.4 g/dL (12.9-16.9); Immature Granulocytes % 0.9 % (0-4); Lymphocytes # 0.4 K/mcL (0.6-4.6); Lymphocytes % 3.4 %; Mean Corpuscular HGB Conc 33.7 g/dL (31.6-35.5); Mean Corpuscular Hemoglobin 33.3 pg (28.0-33.3); Mean Corpuscular Volume 98.9 fL (83.0-100.0); Mean Platelet Volume 11.8 fL (9.4-12.4); Monocytes # 0.7 K/mcL (0.0-1.3); Monocytes % 5.7 %; Platelet Count 237 K/mcL (140-400); Red Blood Count 3.72 M/mcL (4.19-5.50); Red Cell Distribution Width 17.5 % (11.5-14.5); Segmented Neutrophils % 89.7 %
[2017-05-04] MEDS: Insulin LISPRO 300 UNITS/3 ML VIAL SQ SCH ×3 (09:23→17:59)
[2017-05-04 11:08] LABS: Albumin 2.3 g/dL (3.5-5.0); Albumin/Globulin Ratio 0.7 (1.1-2.2); Bilirubin,Direct 7.5 mg/dL (0.0-0.5); Bilirubin,Indirect 2.3 mg/dL (0.0-1.2); Bilirubin,Total 9.8 mg/dL (0.2-1.2); Globulin 3.4 g/dL (2.4-3.5); Total Protein 5.7 g/dL (6.0-8.3)
--- NOTE | 2017-05-04 11:59 | Palliative - Consult Note ---
Date of Encounter: 05/04/17 Time of Encounter: 11:20 - Assessment and Plan (1) Dyspnea Current Visit: Yes Status: Acute Assessment and plan: Supplemental oxygen, position for comfort. Qualifiers: Dyspnea type: unspecified Qualified Code(s): R06.00 - Dyspnea, unspecified (2) Chronic back pain greater than 3 months duration Current Visit: Yes Status: Acute Assessment and plan: Chronic low back pain. OARRS report reviewed and as expected. Mr. Cheatham takes percocet 5/325mg three times a day. His average pain is 8-10/10 and has good response with percocet (reduces pain to 3-4/10). (3) Liver mass Current Visit: Yes Status: Acute Assessment and plan: Plan for biopsy today. (4) Counseling regarding advanced care planning and goals of care Current Visit: Yes Status: Acute Assessment and plan: Discussed goals of care. Mr. Cheatham does not have advanced directives at this time, but would like to nominate his spouse-Susan Mcwilliams-to serve as his agent. He is interested in completing advanced directives this admission. Awaiting biopsy results to determine course of action. Mrs. Susan Cheatham brought up the topic of hospice. She was very firm that hospice does NOT fit their values, and neither does morphine. Mrs. Cheatham interjected in the conversation when speaking about halfway goals. Discussed pain management. Both the patient and his spouse have very strong feelings against the use of morphine and appeared to fixate on the subject. Mr. Cheatham will remain on his home regimen of percocet TID as Rx'd at home. Will follow up with additional discussions as the admission progresses as the couple are far too agitated to comprehend the future plans. The palliative care team will continue to follow. Palliative-CN HPI - Data of Consult Patient: new to practice Consult date: 05/04/17 Requesting Physician: Margarita Castro MD Primary Care Provider: Oliver Aragon MD - Consult Narrative Palliative Care/Comfort Measures: Palliative care Reason for consult: Goals of care History of present illness: Mr. Cheatham is a 76 year old male presenting to the hospital with abdominal pain/distention. Mr. Cheatham reports the abdoninal pain has been present for about a week, but his spouse interjects that he "hasn't been feeling good for 2 months[address] of the abdomen/pelvis revealed metastatic disease to [facility] right adrenal gland, liver, and abdominal lymph nodes. He was admitted for further work-up and treatment. Oncology was consulted and a biospy of the liver was completed. The palliative care team was consulted to assist with goals of care and planning. 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 He has chronic low back pain from work related injuries. He rates his average pain 8-10/10 with the only relief coming from his pain medications. He reports improvement of pain with oxycodone to 3-4/10. Pain does not radiate. Mr. Cheatham denies opioid induced constipation. His PCP, Dr. Aragon, manages his pain. OARRS report reviewed and appropriate. Mr. Cheatham reports significant weight loss. His max weight was around 200#. He has a heavy smoking history and started smoking at the age of 9. Mr. Cheatham was smoking up to 2ppd, but recently changed to smokeless tobacco. CC: Margarita Castro MD Past Med Surg Social Fam HX - Past Medical History Medical history: hyperlipidemia, hypertension, myocardial infarction, thyroid disease, other (chronic back pain) Psychiatric history: ADHD, depression - Past Surgical History Surgical History: cataract - Social History Smoking Status: Current some day smoker (2 ppd for most of his life until 2-3 months ago) Smokeless Tobacco Status: Yes Alcohol use: none, rarely Drug use: none Occupational status: disabled Current living situation: Home, With Family Activity Level: Independent ambulation Recent Out of Country Travel Within the Last 8 Weeks: No Exposure or Possible Exposure to Illness During Travel: No - Family History Mother Living Status: Cause of : [place] Hx Family Cardiac Disorders: Yes ([place]) Medications and Allergies Albuterol Sulfate [Ventolin Hfa] 2 puff IH Q4H PRN 05/03/17 [History] Aspirin [Lo-Dose Aspirin EC] 81 mg PO DAILY 05/03/17 [History] Cholecalciferol (D-3) [Vitamin D] 1,000 unit PO DAILY 05/03/17 [History] Ibuprofen [Motrin] 800 mg PO Q8HR PRN 05/03/17 [History] Levothyroxine [Levothyroxine Sodium] 137 mcg PO DAILY@0630 05/03/17 [History] Lisinopril [Zestril] 40 mg PO DAILY 05/03/17 [History] Oxycodone HCl/Acetaminophen [Percocet 5-325 mg Tablet] 1 tab PO TID PRN [History] Sildenafil Citrate [Revatio] 20 - 60 mg PO DAILY PRN 05/03/17 [History] diazePAM [Valium] 2 mg PO DAILY PRN 05/03/17 [History] Allergies No Known Allergies Allergy (Verified 05/02/17 22:52) - Constitutional Constitutional ROS PAL: decreased appetite, weight loss (50# in the past 6-8 months), no fatigue, no fever(s) - EENT Eyes: no change in vision Ears: decreased hearing Ears, nose, mouth, throat: no dysphagia, no nasal congestion, no sore throat - Cardiovascular Cardiovascular ROS: pedal edema, no chest pain, no chest pain with activity, no dyspnea on exertion, no irregular heart rhythm, no palpitations - Respiratory Respiratory: wheezing, no cough, no dyspnea - Gastrointestinal Gastrointestinal: abdominal pain (resolved since admission), no constipation, no diarrhea, no nausea, no vomiting - Genitourinary Genitourinary ROS male: no difficulty urinating, no dysuria - Musculoskeletal Musculoskeletal ROS IM: back pain (chronic back pain) - Integumentary ROS Integumentary: no sores, no wounds - Neurological Neurological ROS: no confusion, no lack of coordination, no weakness - Psychiatric Psychiatric general PM: depression Palliative Care-Exam - Constitutional Vitals: Temp Pulse Resp BP Pulse Ox 97.8 F 101 17 120/66 94 05/04/17 11:21 05/04/17 11:21 05/04/17 11:21 05/04/17 11:21 05/04/17 11:21 Exam: 76 year old male patient, centrally obese, audible wheezes - Head Head Exam: Present: atraumatic - Eye Eye exam: Present: EOMI Pupils: Present: PERRL - ENT ENT exam: Present: mucous membranes dry - Respiratory Respiratory exam: Present: accessory muscle use (with exertion), wheezes ( audible ). Absent: respiratory distress - Expanded Respiratory Exam Location: wheezes: Left, Right, Upper - Cardiovascular Cardiovascular exam: Present: RRR - GI/Abdominal Exam GI/Abdominal exam: Present: distended, normal bowel sounds - Rectal Rectal Exam: Present: deferred - Neurological Exam Neurological exam: Present: alert, oriented X3, strengths equal and symetr throughout - Psychiatric Psychiatric exam: Absent: agitated, anxious - Skin Skin exam: Present: dry, warm Internal Medicine - CN: Reslt - Labs CBC & Chem 7: 05/04/17 07:42 05/04/17 07:42 Labs: Short CBC 05/04/17 Range/Units 07:42 WBC 12.3 H (4.3-11.1) K/mcL Hgb 12.4 L D (12.9-16.9) g/dL Hct 36.8 L (37.5-50.1) % Plt Count 237 (140-400) K/mcL Neutrophils # 11.0 H (1.6-8.9) K/mcL BMP 05/04/17 07:42 Sodium 138 Potassium 4.4 Chloride 106 Carbon Dioxide 20 BUN 42 H Creatinine 1.37 H Glucose 91 Calcium 8.6 Liver Function 05/04/17 Range/Units 10:42 Total Bilirubin 9.8 H (0.2-1.2) mg/dL Direct Bilirubin 7.5 H (0.0-0.5) mg/dL AST 644 H (5-34) Units/L ALT 387 H (0-55) Units/L Alkaline Phosphatase 432 H (38-126) Units/L Albumin 2.3 L (3.5-5.0) g/dL - ABG Interpretation ABG results: PT/INR, D-dimer PT 13.1 Seconds (9.4-12.1) H 05/03/17 04:18 - Impressions Impressions Chest CT 05/03/17 10:00 IMPRESSION: 1. Large right perihilar mass measuring 7.0 x 6.3 x 5.9 cm, compatible with primary lung malignancy. The mass is contiguous with precarinal adenopathy. 2. Nodular opacity in the periphery of the right upper lobe also likely representing malignancy, measuring 2.4 x 1.2 cm. 3. Metastatic mediastinal lymph nodes. 4. Partial visualization of metastatic disease in the upper abdomen including the liver and right adrenal gland. 5. Emphysema. D/ / 05/03/2017 12:02:05 Aixa Thomas MD / Jossie James Interpreting Provider: Aixa Thomas MD Abdomen MRI 05/03/17 11:15 IMPRESSION: 1. No findings of biliary obstruction. 2. Diffuse hepatic and osseous metastatic disease. There is also a right adrenal metastasis. 3. Borderline to mildly enlarged gastrohepatic, portohepatic, and portocaval lymph nodes may be metastatic or reactive. 4. Additional incidental findings as above. D/ / Hector Schultz MD / Hector Schultz MD Interpreting Provider: Hector Schultz MD Consult Discharge Plan - Plan Referrals: Oliver Aragon MD [Primary Care Provider] - 05/10/17 8:20 am Palliative Quality Palliative Quality: Screen for Code Status: NA (will follow up during hospitalization), Screen for Goals of Care: Yes, Screen for Pain: Yes, If Pain Regimen Started, Initiate Bowel Regimen: Yes, Screen for Nausea/Vomitting: Yes
--- NOTE | 2017-05-04 14:39 | IR Procedure Note ---
Date of procedure: 05/04/17 Consent Obtained: Written consent Timeout: Correct patient and procedure verified, Correct site verified, Time out performed, Skin prep completed Local anesthetic: Lidocaine 1% Indications: Extensive liver metastasis Procedure Performed: Liver biopsy Site/Technique: Left anterior liver biopsy Results/Findings: 4 cores with 18g cores Estimated blood loss (cc): 1 Complications: None; Tolerated procedure well Post Procedure Treatment Plan: Monitoring in pts room
--- NOTE | 2017-05-04 15:16 | Gastroenterology Consult Note ---
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 Management per oncology. (2) Transaminitis Current Visit: Yes Status: Acute Assessment and plan: Likely secondary to liver metastasis. CT A/P revealed metastatic disease involving the right adrenal gland and the liver and upper abdominal lymph nodes also probably metastatic. MRCP shows diffuse hepatic and osseous metastatic disease also a right adrenal metastasis. No indication for EUS/ERCP. Continue to monitor. (3) Hyperbilirubinemia Current Visit: Yes Status: Acute Assessment and plan: Likely secondary to liver metastasis. CT A/P revealed metastatic disease involving the right adrenal gland and the liver and upper abdominal lymph nodes also probably metastatic. MRCP shows diffuse hepatic and osseous metastatic disease also a right adrenal metastasis. No indication for EUS/ERCP. Continue to monitor. (4) COPD (chronic obstructive pulmonary disease) Current Visit: Yes Status: Acute Qualifiers: COPD type: unspecified COPD Qualified Code(s): J44.9 - Chronic obstructive pulmonary disease, unspecified - Time Spent With Patient Total time spent is greater than 50% in coordination of care (as documented) at patient's floor/unit and/or counseling patient: GI History of Present Illness - Data of Consult Patient: new to practice Consult date: 05/04/17 Requesting Physician: Margarita Castro MD - Consult Narrative Reason for consult: Hyperbilirubinemia, transaminitis History of present illness: Mr. Cheatham is a 76 year old male with PMHx of HLD, HTN, [place], and COPD who presented to the ED with abdominal pain and distention for the past 2 months which has gradually worsened. He complains of fullness and distention with no alleviating factors. Pain is worse when he lays flat. He denies chest pain, nausea, vomiting, or diarrhea. Patient also reports weight loss of almost 30 pounds over the past 3-[address] chest revealed a right upper lobe lung mass centrally. CT A/P revealed metastatic disease involving the right adrenal gland and the liver and upper abdominal lymph nodes also probably metastatic. MRCP shows diffuse hepatic and osseous metastatic disease also a right adrenal metastasis. On admission TB 9.1, AST 278, ALT 229, Alk phos 573. Procedures: None NSAIDs: Ibuprofen, ASA Anticoagulation: None Past Med Surg Social Fam HX - Past Medical History Medical history: hyperlipidemia, hypertension, myocardial infarction, thyroid disease, other (chronic back pain) Psychiatric history: ADHD, depression - Past Surgical History Surgical History: cataract - Social History Smoking Status: Current some day smoker (2 ppd for most of his life until 2-3 months ago) Smokeless Tobacco Status: Yes Alcohol use: none, rarely Drug use: none - Family History Mother Living Status: Cause of : [place] Hx Family Cardiac Disorders: Yes ([place]) - Gastrointestinal Gastrointestinal: Present: as per HPI - Constitutional Constitutional: as per HPI - EENT Eyes: as per HPI Ears: Present: as per HPI Nose, mouth and throat: Present: as per HPI - Cardiovascular Cardiovascular ROS: Present: as per HPI - Respiratory Respiratory IM: Present: as per HPI - Genitourinary Genitourinary: Absent: change in color, Urinary frequency - Neurological ROS Neurological GI: Present: as per HPI - Hematologic/Lymphatic Hematologic/Lymphatic pediatric: Present: as per HPI - Musculoskeletal Musculoskeletal ROS GI: Present: as per HPI - Integumentary Integumentary GI: Present: as per HPI - Psychiatric ROS Psychiatric GI: Present: as per HPI - Endocrine Endocrine IM: Present: as per HPI - Constitutional Vitals: Temp Pulse Resp BP Pulse Ox 97.8 F 96 16 121/58 94 05/04/17 15:03 05/04/17 15:03 05/04/17 15:03 05/04/17 15:03 05/04/17 15:03 General appearance: Present: cooperative, A&O X 3, no acute distress, answers questions appropriately - Head Head exam: Present: atraumatic, normocephalic - Eye Eye exam: Present: scleral icterus - ENT ENT exam: Present: mucous membranes moist - Neck Neck exam general surgery: Present: normal inspection, trachea midline - Respiratory Respiratory exam: Present: CTAB. Absent: rales, rhonchi - Cardiovascular Cardiovascular exam: Present: RRR, +S1, +S2 - GI/Abdominal GI/Abdominal exam: Present: distended, firm, soft, no peritoneal signs. Absent : guarding, tenderness - Rectal Rectal exam: Present: deferred - Extremities Exam Extremities exam: Present: warm - Neurological Exam Neurological exam: Present: no focal deficits - Psychiatric Psychiatric exam: Present: normal affect, normal mood - Skin Skin exam: Present: dry, intact, normal color, warm Results - Labs CBC & Chem 7: 05/04/17 07:42 05/04/17 07:42 Labs: Last Result Calcium 8.6 mg/dL (8.6-10.8) 05/04/17 07:42 Entire Visit Hgb 12.4 g/dL (12.9-16.9) L D 05/04/17 07:42 Hct 36.8 % (37.5-50.1) L 05/04/17 07:42 PT 13.1 Seconds (9.4-12.1) H 05/03/17 04:18 Total Bilirubin 9.8 mg/dL (0.2-1.2) H 05/04/17 10:42 AST 644 Units/L (5-34) H 05/04/17 10:42 ALT 387 Units/L (0-55) H 05/04/17 10:42 Ammonia 43 mcmol/L (18-72) 05/03/17 04:18 Amylase 66 Units/L (25-125) 05/02/17 23:47 Lipase 95 Units/L (8-78) H 05/02/17 23:47 Carcinoembryonic Ag 7.4 ng/mL (0-5.0) H 05/04/17 10:42 Acetaminophen < 1.0 mcg/mL (10-30) L 05/03/17 04:18 - ABG ABG results: PT/INR, D-dimer PT 13.1 Seconds (9.4-12.1) H 05/03/17 04:18 - Impressions Impressions Chest CT 05/03/17 10:00 IMPRESSION: 1. Large right perihilar mass measuring 7.0 x 6.3 x 5.9 cm, compatible with primary lung malignancy. The mass is contiguous with precarinal adenopathy. 2. Nodular opacity in the periphery of the right upper lobe also likely representing malignancy, measuring 2.4 x 1.2 cm. 3. Metastatic mediastinal lymph nodes. 4. Partial visualization of metastatic disease in the upper abdomen including the liver and right adrenal gland. 5. Emphysema. D/ / 05/03/2017 12:02:05 Aixa Thomas MD / Jossie James Interpreting Provider: Aixa Thomas MD Consult Discharge Plan - Plan Referrals: Oliver Aragon MD [Primary Care Provider] - 05/10/17 8:20 am <Jenna Traned - Last Filed: 05/04/17 19:04> Date of Encounter: 05/04/17 Time of Encounter: 15:00 - Time Spent With Patient Total time spent is greater than 50% in coordination of care (as documented) at patient's floor/unit and/or counseling patient: GI History of Present Illness - Data of Consult Requesting Physician: Margarita Castro MD - Consult Narrative History of present illness: Mr. Cheatham is a 76 year old male - Constitutional Vitals: Temp Pulse Resp BP Pulse Ox 98.1 F 94 16 111/70 91 05/04/17 16:26 05/04/17 16:26 05/04/17 16:39 05/04/17 16:26 05/04/17 16:39 Results - Labs CBC & Chem 7: 05/04/17 07:42 05/04/17 07:42 Labs: Last Result Calcium 8.6 mg/dL (8.6-10.8) 05/04/17 07:42 Entire Visit Hgb 12.4 g/dL (12.9-16.9) L D 05/04/17 07:42 Hct 36.8 % (37.5-50.1) L 05/04/17 07:42 PT 13.1 Seconds (9.4-12.1) H 05/03/17 04:18 Total Bilirubin 9.8 mg/dL (0.2-1.2) H 05/04/17 10:42 AST 644 Units/L (5-34) H 05/04/17 10:42 ALT 387 Units/L (0-55) H 05/04/17 10:42 Ammonia 43 mcmol/L (18-72) 05/03/17 04:18 Amylase 66 Units/L (25-125) 05/02/17 23:47 Lipase 95 Units/L (8-78) H 05/02/17 23:47 Carcinoembryonic Ag 7.4 ng/mL (0-5.0) H 05/04/17 10:42 Acetaminophen < 1.0 mcg/mL (10-30) L 05/03/17 04:18 - ABG ABG results: PT/INR, D-dimer PT 13.1 Seconds (9.4-12.1) H 05/03/17 04:18 - Impressions Impressions Liver Biopsy CT 05/04/17 15:21 IMPRESSION: Successful CT guided core biopsy of the left hepatic lobe. D/ / Milo Irby MD / Milo Irby MD Interpreting Provider: Milo Irby MD - Attending Attestation I examined this patient and my medical decision-making was reviewed with the MANAGER ENT/PA/Advanced Practice Nurse/Resident Physician. I agree with the documented findings, disposition and treatment plan as described except to the extent set forth below.
--- NOTE | 2017-05-04 15:40 | Internal Med Progress Note ---
Date of Encounter: 05/04/17 Time of Encounter: 15:38 - Subjective Interval history: Patient seen in the bedside, reports of mild abdominal pain and distention. Currently is nothing by mouth for liver biopsy today. Pt appears to have metastatic lung cancer with metastases to right adrenal gland , liver, upper abdominal lymph nodes - Constitutional Vitals: Temp Pulse Resp BP Pulse Ox 97.8 F 96 16 121/58 94 05/04/17 15:03 05/04/17 15:03 05/04/17 15:03 05/04/17 15:03 05/04/17 15:03 General appearance: Present: mild distress, A&O X 3, pleasant, answers questions appropriately Exam: - Head Head exam: Present: atraumatic, normocephalic - Eye Eye exam: Present: scleral icterus - ENT ENT exam: Present: mucous membranes moist - Neck Neck exam general surgery: Present: normal inspection, trachea midline - Respiratory Respiratory exam: Present: CTAB. Absent: rales, rhonchi - Cardiovascular Cardiovascular exam: Present: RRR, +S1, +S2 - GI/Abdominal GI/Abdominal exam: Present: distended, firm, soft, no peritoneal signs. Absent : guarding, tenderness - Rectal Rectal exam: Present: deferred - Extremities Exam Extremities exam: Present: warm - Neurological Exam Neurological exam: Present: no focal deficits - Psychiatric Psychiatric exam: Present: normal affect, normal mood - Skin Skin exam: Present: dry, intact, normal color, warm Internal Medicine: Result - Labs CBC & Chem 7: 05/04/17 07:42 05/04/17 07:42 Labs: Short CBC 05/04/17 Range/Units 07:42 WBC 12.3 H (4.3-11.1) K/mcL Hgb 12.4 L D (12.9-16.9) g/dL Hct 36.8 L (37.5-50.1) % Plt Count 237 (140-400) K/mcL Neutrophils # 11.0 H (1.6-8.9) K/mcL BMP 05/04/17 07:42 Sodium 138 Potassium 4.4 Chloride 106 Carbon Dioxide 20 BUN 42 H Creatinine 1.37 H Glucose 91 Calcium 8.6 Liver Function 05/04/17 Range/Units 10:42 Total Bilirubin 9.8 H (0.2-1.2) mg/dL Direct Bilirubin 7.5 H (0.0-0.5) mg/dL AST 644 H (5-34) Units/L ALT 387 H (0-55) Units/L Alkaline Phosphatase 432 H (38-126) Units/L Albumin 2.3 L (3.5-5.0) g/dL - ABG Interpretation ABG results: PT/INR, D-dimer PT 13.1 Seconds (9.4-12.1) H 05/03/17 04:18 - Impressions Impressions Chest CT 05/03/17 10:00 IMPRESSION: 1. Large right perihilar mass measuring 7.0 x 6.3 x 5.9 cm, compatible with primary lung malignancy. The mass is contiguous with precarinal adenopathy. 2. Nodular opacity in the periphery of the right upper lobe also likely representing malignancy, measuring 2.4 x 1.2 cm. 3. Metastatic mediastinal lymph nodes. 4. Partial visualization of metastatic disease in the upper abdomen including the liver and right adrenal gland. 5. Emphysema. D/ / 05/03/2017 12:02:05 Aixa Thomas MD / Jossie James Interpreting Provider: Aixa Thomas MD Liver Biopsy CT 05/04/17 15:21 IMPRESSION: Successful CT guided core biopsy of the left hepatic lobe. D/ / Milo Irby MD / Milo Irby MD Interpreting Provider: Milo Irby MD Consult Discharge Plan - Plan Referrals: Oliver Aragon MD [Primary Care Provider] - 05/10/17 8:20 am
[2017-05-04] MEDS: *HR* OxyCODONE/APAP 5/325 TABLET PO PRN (20:19)
[2017-05-05] MEDS: Piperacillin/Tazobactam 3.375 GM in D5% in Water (Mini-Bag+) 100 ML IVPB SCH ×2 (00:34→08:27)
[2017-05-05] MEDS: 0.9 % Sodium Chloride 1,000 ML IVC SCH ×2 (00:34→10:23)
[2017-05-05] MEDS: Ipratropium/Albuterol Neb 3 ML IH SCH ×3 (03:36→11:08)
[2017-05-05] MEDS: *HR* OxyCODONE/APAP 5/325 TABLET PO PRN (05:09)
[2017-05-05] MEDS: Famotidine 20 MG/2 ML VIAL IVP SCH (05:09)
[2017-05-05] MEDS: Insulin LISPRO 300 UNITS/3 ML VIAL SQ SCH ×2 (08:12→12:19)
--- NOTE | 2017-05-05 10:02 | Palliative Progress Note ---
Date of Encounter: 05/05/17 Time of Encounter: 09:30 - Assessment and plan (1) Constipation by delayed colonic transit Current Visit: Yes Status: Acute Assessment and plan: Patient had BM this AM. He states that no BM x 5 days. Patient takes percocet and will add stool softner and PRN laxative. Cont. to monitor. (2) Dyspnea Current Visit: No Status: Acute Assessment and plan: Patient sitting up in bed. Able to hold discussion without SOB. Currently on room air at 21% and sats 92%. Vitals stable. Continue supplemental O2, qualify for home O2. Duonebs and position for comfort with HOB up. Continue to monitor. Qualifiers: Dyspnea type: unspecified Qualified Code(s): R06.00 - Dyspnea, unspecified (3) Chronic back pain greater than 3 months duration Current Visit: Yes Status: Acute Assessment and plan: Patient reports chronic back pain that has been managed well with percocet. Patient has requested only a few while here. Educated about the need to be comfortable. He verbalized understanding. Patient reports pain as a chronic ache to the lumbar area. 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 Position for comfort. Cont. to monitor. (4) Counseling regarding advanced care planning and goals of care Current Visit: Yes Status: Acute Assessment and plan: Patient and in room as well as sister in law. Museum Attendant at bedside to draft Advanced Directives. Instructions given to . Verbalized understanding. Patient is Full Code and patient and are awaiting results of liver biopsy. Patient and has verbalized no wanting hospice care. Will continue to follow and have discussions related to POC. (5) Liver mass Current Visit: Yes Status: Acute Assessment and plan: s/p liver biopsy. Awaiting final report. - Time Spent With Patient Total time spent is greater than 50% in coordination of care (as documented) at patient's floor/unit and/or counseling patient: 25 - 35 minutes - Subjective Interval history: Patient up in the chair. Reports BM this AM. Reports feeling less pressure on his abdomen. States that his back is sore. Denies N/V. - Constitutional Vitals: Abnormal lab results WBC 12.3 K/mcL (4.3-11.1) H 05/04/17 07:42 RBC 3.72 M/mcL (4.19-5.50) L 05/04/17 07:42 Hgb 12.4 g/dL (12.9-16.9) L D 05/04/17 07:42 Hct 36.8 % (37.5-50.1) L 05/04/17 07:42 RDW 17.5 % (11.5-14.5) H 05/04/17 07:42 Neutrophils # 11.0 K/mcL (1.6-8.9) H 05/04/17 07:42 Lymphocytes # 0.4 K/mcL (0.6-4.6) L 05/04/17 07:42 Immature Plt Fraction 7.7 % (1.1-6.1) H 05/02/17 23:47 PT 13.1 Seconds (9.4-12.1) H 05/03/17 04:18 BUN 42 mg/dL (8-26) H 05/04/17 07:42 Creatinine 1.37 mg/dL (0.72-1.25) H 05/04/17 07:42 Est GFR (Non-Af Amer) 51 (> 60) L 05/04/17 07:42 BUN/Creatinine Ratio 31 (6-26) H 05/04/17 07:42 POC Glucose 134 (58-89) H 05/04/17 20:55 Total Bilirubin 9.8 mg/dL (0.2-1.2) H 05/04/17 10:42 Direct Bilirubin 7.5 mg/dL (0.0-0.5) H 05/04/17 10:42 Indirect Bilirubin 2.3 mg/dL (0.0-1.2) H 05/04/17 10:42 AST 644 Units/L (5-34) H 05/04/17 10:42 ALT 387 Units/L (0-55) H 05/04/17 10:42 Alkaline Phosphatase 432 Units/L (38-126) H 05/04/17 10:42 Lactate Dehydrogenase 1608 Units/L (159-327) H 05/04/17 07:42 Serum Total Protein 5.7 g/dL (6.0-8.3) L 05/04/17 10:42 Albumin 2.3 g/dL (3.5-5.0) L 05/04/17 10:42 Albumin/Globulin Ratio 0.7 (1.1-2.2) L 05/04/17 10:42 Lipase 95 Units/L (8-78) H 05/02/17 23:47 Carcinoembryonic Ag 7.4 ng/mL (0-5.0) H 05/04/17 10:42 Urine Color [place] (Yellow) A 05/03/17 01:28 Urine Clarity Cloudy (Clear) A 05/03/17 01:28 Ur Specific [place] 1.026 (1.010-1.025) H 05/03/17 01:28 Urine Protein 30 mg/dL (Neg-Trace) H 05/03/17 01:28 Urine Ketones Trace mg/dL (Negative) H 05/03/17 01:28 Urine Nitrite Positive (Negative) A 05/03/17 01:28 Urine Bilirubin Large (Negative) H 05/03/17 01:28 Urine Urobilinogen 2.0 mg/dL (Normal) H 05/03/17 01:28 Ur Leukocyte Esterase Small (Negative) H 05/03/17 01:28 Ur Squamous Epith Cells Moderate per lpf (None-Few) H 05/03/17 01:28 Ur Culture Indicated? YES (NO) A 05/03/17 01:28 Acetaminophen < 1.0 mcg/mL (10-30) L 05/03/17 04:18 - Head Head exam: Present: atraumatic, normal inspection, normocephalic - Eye Eye exam: Present: PERRL Pupils: Present: PERRL - ENT ENT exam: Present: mucous membranes moist - Neck Neck exam: Present: full ROM - Respiratory Respiratory exam: Present: CTAB - Cardiovascular Cardiovascular exam: Present: RRR, +S1, +S2 - GI/Abdominal GI/Abdominal exam: Present: distended, normal bowel sounds, soft, tenderness - Rectal Rectal exam: Present: deferred - Extremities Exam Extremities exam: Present: full ROM - Back Exam Back exam: Present: tenderness, vertebral tenderness - Neurological Exam Neurological exam: Present: alert, oriented X3 ([place]) - Psychiatric Psychiatric exam: Present: normal affect - Skin Skin exam: Present: pallor, warm Palliative Quality Palliative Quality: Screen for Code Status: NA (will follow up during hospitalization), Screen for Goals of Care: Yes, Screen for Pain: Yes, If Pain Regimen Started, Initiate Bowel Regimen: Yes, Screen for Nausea/Vomitting: Yes - Labs CBC & Chem 7: 05/04/17 07:42 05/04/17 07:42 Labs: Laboratory Results - last 24 hr 05/03/17 05/04/17 05/04/17 07:23 07:38 10:42 POC Glucose 88 94 H Total Bilirubin 9.8 H Direct Bilirubin 7.5 H Indirect Bilirubin 2.3 H AST 644 H ALT 387 H Alkaline Phosphatase 432 H Serum Total Protein 5.7 L Albumin 2.3 L Globulin 3.4 Albumin/Globulin Ratio 0.7 L Carcinoembryonic Ag 05/04/17 05/04/17 05/04/17 10:42 11:25 16:24 POC Glucose 91 H 92 H Total Bilirubin Direct Bilirubin Indirect Bilirubin AST ALT Alkaline Phosphatase Serum Total Protein Albumin Globulin Albumin/Globulin Ratio Carcinoembryonic Ag 7.4 H 05/04/17 20:55 POC Glucose 134 H Total Bilirubin Direct Bilirubin Indirect Bilirubin AST ALT Alkaline Phosphatase Serum Total Protein Albumin Globulin Albumin/Globulin Ratio Carcinoembryonic Ag - Impressions Impressions Liver Biopsy CT 05/04/17 15:21 IMPRESSION: Successful CT guided core biopsy of the left hepatic lobe. D/ / Milo Irby MD / Milo Irby MD Interpreting Provider: Milo Irby MD - ABG Interpretation ABG results: PT/INR, D-dimer PT 13.1 Seconds (9.4-12.1) H 05/03/17 04:18 Consult Discharge Plan - Plan Referrals: Oliver Aragon MD [Primary Care Provider] - 05/10/17 8:20 am
[2017-05-05 11:31] VITALS: BP 117/66
--- NOTE | 2017-05-05 11:59 | Discharge Summary ---
Date of Encounter: 05/05/17 Time of Encounter: 11:56 - Discharge Diagnosis (1) Lung mass Priority: Primary Status: Acute (2) COPD (chronic obstructive pulmonary disease) Priority: Secondary Status: Acute Qualifiers: COPD type: unspecified COPD Qualified Code(s): J44.9 - Chronic obstructive pulmonary disease, unspecified (3) Transaminitis Priority: Primary Status: Acute (4) Hyperbilirubinemia Priority: Primary Status: Acute - Discharge Medications Prescriptions: OxyCODONE/APAP 5/325 [Percocet 5/325 MG] 1 each PO Q6H PRN #90 tablet PRN Reason: Pain Sennosides/Docusate Sodium [Senna Plus] 1 each PO BID PRN #30 tablet PRN Reason: Constipation Home Medications: Albuterol Sulfate [Ventolin Hfa] 2 puff IH Q4H PRN 05/03/17 [History] Aspirin [Lo-Dose Aspirin EC] 81 mg PO DAILY 05/03/17 [History] Cholecalciferol (D-3) [Vitamin D] 1,000 unit PO DAILY 05/03/17 [History] Levothyroxine [Levothyroxine Sodium] 137 mcg PO DAILY@0630 05/03/17 [History] Lisinopril [Zestril] 40 mg PO DAILY 05/03/17 [History] Oxycodone HCl/Acetaminophen [Percocet 5-325 mg Tablet] 1 tab PO TID PRN [History] Sildenafil Citrate [Revatio] 20 - 60 mg PO DAILY PRN 05/03/17 [History] diazePAM [Valium] 2 mg PO DAILY PRN 05/03/17 [History] OxyCODONE/APAP 5/325 [Percocet 5/325 MG] 1 each PO Q6H PRN #90 tablet 05/05/17 [ Rx] Sennosides/Docusate Sodium [Senna Plus] 1 each PO BID PRN #30 tablet 05/05/17 [ Rx] Allergies/Adverse Reactions: Allergies No Known Allergies Allergy (Verified 05/02/17 22:52) Procedures/tests Complete & Pending: Procedures Performed prior 72 hours Category Date Time Status CT biopsy liver [CT] Routine Cat Scan 05/04/17 15:[address] chest w/o contrast [CT chest wo con] [CT] Routine Cat Scan 05/03/17 10:00 Completed MRCP [MR abdomen wo con] [MR] Stat MRI 05/03/17 11:15 Completed Date of admission: 05/03/17 03:27 Primary care physician: Oliver Aragon MD Consults: 05/03/17 03:33 Consult to Oncology [CONS] Routine Consulting Provider: [facility] Reason for Consult: lung mass with mets Call Completed: No 05/03/17 03:34 Consult to Gastroenterology [CONS] Routine Consulting Provider: Gastroenterology [place] Reason for Consult: hyperbilirubinemia, transaminitis Call Completed: No 05/03/17 15:36 Consult to Palliative Care [CONS] Routine Comment: Consulting Provider: Palliative [facility] [place] Reason for Consult: Extensive liver disease likely from metastatic lung cancer. Plan to treat if small cell, otherwise will need hospice. Call Completed: No 05/04/17 09:25 Consult to Interventional Radiology [CONS] Routine Consulting Provider: Radiology Interventional [facility] Reason for Consult: please evaluate for IR guided liver biopsy. Thank you. Call Completed: No Discharging clinician: Tiffany Saravia Anticipated date of discharge: 05/05/17 - Patient Status Disposition: Home, Self-Care Condition: Fair Functional capacity at discharge: independent ambulation Overall status at discharge: patient is back to baseline - Discharge Instructions Follow Up With: Oliver Aragon MD [Primary Care Provider] - 05/10/17 8:20 am José Luis Kim MD [Partnered Physician] - 05/12/17 3:00 pm - Diet and Activity Activity: resume usual activities as tolerated Diet: advance to your usual diet Interval History: Mr. Cheatham is a 76 year old male with PMHx of HLD, HTN, [place], and COPD who presented to the ED with abdominal pain and distention for the past 2 months which has gradually worsened. He complains of fullness and distention with no alleviating factors. Pain is worse when he lays flat. He denies chest pain, nausea, vomiting, or diarrhea. Patient also reports weight loss of almost 30 pounds over the past 3-[address] chest revealed a right upper lobe lung mass centrally. On admission TB 9.1, AST 278, ALT 229, Alk phos 573. oncology and GI was consulted. he underwent liver biopsy. he was noted to have hyperbilirubinemia with transaminitis Likely secondary to liver metastasis. CT A/P revealed metastatic disease involving the right adrenal gland and the liver and upper abdominal lymph nodes also probably metastatic. MRCP shows diffuse hepatic and osseous metastatic disease also a right adrenal metastasis. No indication for EUS/ERCP at this time as per GI. No acute events status post liver biopsy, patient remained relatively stable. Patient is being discharged today in stable condition and will follow-up with oncology with the liver biopsy results in 1 week for possible starting of chemotherapy. Hospital course: Mr. Cheatham is a 76 year old male - Time Spent with Patient Total time spent providing and/or coordinating discharge services: - Constitutional Vitals: Temp Pulse Resp BP Pulse Ox 97.5 F L 99 21 117/66 94 05/05/17 11:29 05/05/17 11:29 05/05/17 11:29 05/05/17 11:29 05/05/17 11:29 General appearance: Present: A&O X 3, pleasant, answers questions appropriately Exam: - Head Head exam: Present: atraumatic, normal inspection, normocephalic - Eye Eye exam: Present: scleral icterus, conjuntiva pink - ENT ENT exam: Present: mucous membranes moist, normal exam, normal oropharynx - Neck Neck exam: Present: full ROM, normal inspection - Respiratory Respiratory exam: Present: decreased breath sounds - Cardiovascular Cardiovascular exam: Present: RRR - GI/Abdominal GI/Abdominal exam: Present: distended, firm, organomegaly, tenderness - Extremities Exam Extremities exam: Present: pedal edema - Skin Skin exam: Present: dry
[2017-05-05 12:40] LABS: Basophils % 0.2 %; Eosinophils # 0.1 K/mcL (0.0-0.6); Eosinophils % 0.4 %; Hematocrit 37.3 % (37.5-50.1); Hemoglobin 12.4 g/dL (12.9-16.9); Immature Granulocytes % 1.6 % (0-4); Lymphocytes # 0.7 K/mcL (0.6-4.6); Lymphocytes % 5.4 %; Mean Corpuscular HGB Conc 33.2 g/dL (31.6-35.5); Mean Corpuscular Hemoglobin 32.7 pg (28.0-33.3); Mean Corpuscular Volume 98.4 fL (83.0-100.0); Monocytes # 0.9 K/mcL (0.0-1.3); Monocytes % 7.4 %; Neutrophils # 10.8 K/mcL (1.6-8.9); Platelet Count 254 K/mcL (140-400); Red Blood Count 3.79 M/mcL (4.19-5.50); Red Cell Distribution Width 17.6 % (11.5-14.5)
== END 2017-05-05 13:37 | disposition home or self-care (01) | DRG 871 ==
LOC: 3BNU 22:09 → EMEROO 22:09 → 3BNU 05-03 03:14 → SUATTDRO 05-03 03:27
PROVIDERS: ADMIT Internal Medicine; ATTEND Internal Medicine
PROC: IRLIVER (2017-05-04 13:15)